=== PATIENT | male | born 1935 | race Caucasian/White ===

== ENCOUNTER 2021-04-26 20:46 | Emergency (ER) | payer OTHER ==
[~2021-04-26] VITALS: Ht 177.8 cm; Wt 59.1 kg
[2021-04-26 23:08] VITALS: BP 178/83; PULSE 94; TEMP 98.1
== END 2021-04-26 23:08 | disposition home or self-care (01) ==
LOC: COL.ER 20:46
DX: N99.89 Other postprocedural complications and disorders of genitourinary system (principal); R33.9 Retention of urine, unspecified; J44.9 Chronic obstructive pulmonary disease, unspecified; Z87.891 Personal history of nicotine dependence; Z98.890 Other specified postprocedural states
CPT/HCPCS: 31860; A4314

== ENCOUNTER 2021-12-04 14:43 | Emergency (ER) | payer MEDICARE, MEDICAID ==
[~2021-12-04] VITALS: Ht 177.8 cm; Wt 55.9 kg
[~2021-12-04 14:43] MED LIST: 00186-0370-20 IH; ASPIRIN 32325 MG/TAB PO; CALCIUM 600MG+D1 TAB PO; COZAAR 25MG25 MG/TAB PO; ENSURE 237 ML237 ML PO; FLOMAX 0.40.4 MG/CAP PO; MUCUS RELIEF400 M1 PO; NORCO 325 MG-51 TAB PO; PROAIR HFA0.09 MG/AC IH; SINGULAIR 110 MG/TAB PO; SODIUM BICARBO650 MG PO; SPIRIVA RE2.5 MCG/Ac IH; THEO-24400 MG PO; ZOCOR 40MG40 MG PO
[2021-12-04 15:09] VITALS: TEMP 97.8
[2021-12-04 15:51] LABS: BASO % 0.8 % (0.0-2.0); EOS # 0.1 K/mm3 (0.0-0.7); EOS % 1.8 % (0.0-4.0); GRAN # 2.4 K/mm3 (1.4-6.5); HEMATOCRIT 37.1 % (42.0-52.0); HEMOGLOBIN 12.4 g/dl (13.5-18.0); LYMPH % 26.1 % (20.0-51.0); MEAN CELL VOLUME 91 fl (80.0-100.0); MEAN CORPUSCULAR HEMOGLOBIN 31 pg (27-31); MEAN CORPUSCULAR HGB CONC 33 g/dl (33.0-37.0); MEAN PLATELET VOLUME 9.6 fl (7.4-10.4); MONO # 0.4 K/mm3 (0.1-0.6); PLATELET COUNT 180 K/mm3 (130-400); RED BLOOD COUNT 4.06 M/mm3 (4.20-5.60); REDCELL DISTRIBUTION WIDTH-CV 14.1 % (11.5-14.5)
[2021-12-04 16:05] LABS: ALBUMIN 3.5 gm/dL (3.4-4.8); BILIRUBIN,TOTAL 0.6 mg/dL (0.2-1.2); CALCIUM 9.2 mg/dL (8.4-10.2); CREATININE, serum 0.85 mg/dL (0.72-1.25); POTASSIUM 3.7 mmol/L (3.5-4.5); TOTAL PROTEIN 6.3 gm/dL (6.2-8.1)
[2021-12-04 16:11] LABS: TROPONIN-I 0.018 ng/mL (0.00-0.033)
[2021-12-04] MEDS ORDERED: CARDIZEM CD 18180 MG PO (17:13)
[2021-12-04 17:56] VITALS: BP 172/88; PULSE 92
[2021-12-13] MEDS ORDERED: CENA K20 MEQ/15 (18:33)
[2021-12-13] MEDS ORDERED: ENSURE 237 ML237 ML PO (19:32)
[2021-12-13] MEDS ORDERED: MILK OF MA400 MG/52 PO (19:34)
[2021-12-13] MEDS ORDERED: CENA K20 MEQ/15 PO (19:35)
[2021-12-13] MEDS ORDERED: CARDIZEM CD 18180 MG PO (19:37)
== END 2021-12-04 18:00 | disposition home or self-care (01) ==
LOC: COL.ER 14:43
PROVIDERS: Physician Assistant
DX: I47.1 Supraventricular tachycardia (principal); Z87.891 Personal history of nicotine dependence

== ENCOUNTER → 2022-03-20 | Outpatient (CLI) | payer OTHER ==
[~2022-03-20] MED LIST changes: +AMOXICILLIN 8751 TAB PO; +ASPIRIN E.C. 8181 MG PO; +BETAPACE 80MG80 MG PO; +CARDIZEM CD 12120 MG PO; +CARDIZEM CD 18180 MG PO; +CEFTIN500 MG PO; +CENA K20 MEQ/15; +CENA K20 MEQ/15 PO; +DIFLUCAN 100MG100 MG PO; +DOXYCYCLINE HY100 MG PO; +ELIQUIS 2.5 PO; +MILK OF MA400 MG/52 PO; +MONODOX100 PO; +NEURONTIN100 MG/CAP PO; +PREDNISONE10 MG; +PREDNISONE10 MG PO; +PREDNISONE20 MG PO; +PROTONIX 40MG T40 MG PO; +ULTRAM 50MG TAB50 MG PO
== END ==
LOC: COL.RAD 13:27
DX: C34.12 Malignant neoplasm of upper lobe, left bronchus or lung (principal); J90 Pleural effusion, not elsewhere classified; J43.9 Emphysema, unspecified; K80.20 Calculus of gallbladder without cholecystitis without obstruction
CPT/HCPCS: Q9967

== ENCOUNTER 2022-07-07 13:40 | Emergency (ER) | payer OTHER, MEDICARE, MEDICAID ==
[~2022-07-07] VITALS: Ht 177.8 cm; Wt 54.5 kg
[~2022-07-07 13:40] MED LIST changes: -AMOXICILLIN 8751 TAB PO; -ASPIRIN E.C. 8181 MG PO; -BETAPACE 80MG80 MG PO; -CARDIZEM CD 12120 MG PO; -CEFTIN500 MG PO; -DIFLUCAN 100MG100 MG PO; -DOXYCYCLINE HY100 MG PO; -ELIQUIS 2.5 PO; -MONODOX100 PO; -NEURONTIN100 MG/CAP PO; -PREDNISONE10 MG; -PREDNISONE10 MG PO; -PREDNISONE20 MG PO; -PROTONIX 40MG T40 MG PO; -ULTRAM 50MG TAB50 MG PO
[2022-07-07 13:45] VITALS: TEMP 98
[2022-07-07] MEDS ORDERED: PREDNISONE10 MG (14:02)
[2022-07-07 14:12] LABS: HEMOGLOBIN 12.3 g/dl (13.5-18.0); MEAN CELL VOLUME 88 fl (80.0-100.0); MEAN CORPUSCULAR HEMOGLOBIN 29 pg (27-31); MEAN CORPUSCULAR HGB CONC 34 g/dl (33.0-37.0); PLATELET COUNT 245 K/mm3 (130-400); RED BLOOD COUNT 4.18 M/mm3 (4.20-5.60); REDCELL DISTRIBUTION WIDTH-CV 13.9 % (11.5-14.5)
[2022-07-07 14:15] LABS: HEMATOCRIT 36.6 % (42.0-52.0)
[2022-07-07 14:29] LABS: ALBUMIN 3.4 gm/dL (3.4-4.8); BILIRUBIN,TOTAL 0.3 mg/dL (0.2-1.2); CALCIUM 9.1 mg/dL (8.4-10.2); CREATININE, serum 0.83 mg/dL (0.72-1.25); POTASSIUM 4.3 mmol/L (3.5-4.5); TOTAL PROTEIN 6.7 gm/dL (6.2-8.1)
[2022-07-07 14:35] LABS: TROPONIN-I 0.016 ng/mL (0.00-0.033)
[2022-07-07 14:51] LABS: BAND 1 % (0-10); LYMPHOCYTE 4 % (20.0-51.0); NEUTROPHILS 95 % (42.0-75.2); PLATELET ESTIMATE NORMAL (NORMAL)
[2022-07-07] MEDS ORDERED: AMOXICILLIN 8751 TAB PO (15:10)
[2022-07-07 16:35] VITALS: BP 148/70; PULSE 76
== END 2022-07-07 16:40 | disposition home or self-care (01) ==
LOC: COL.ER 13:40
PROVIDERS: Personal Emergency Response Attendant
DX: J44.0 Chronic obstructive pulmonary disease with (acute) lower respiratory infection (principal); J18.9 Pneumonia, unspecified organism; J44.1 Chronic obstructive pulmonary disease with (acute) exacerbation; C34.90 Malignant neoplasm of unspecified part of unspecified bronchus or lung; Z88.1 Allergy status to other antibiotic agents
CPT/HCPCS: J0456; J0696; J2930; J7050

== ENCOUNTER 2022-08-13 10:31 | Inpatient (IN) | payer OTHER ==
[~2022-08-13] VITALS: Ht 177.8 cm; Wt 59.0 kg
[~2022-08-13 10:31] MED LIST changes: +AMOXICILLIN 8751 TAB PO; +CARDIZEM CD 12120 MG PO; +ELIQUIS 2.5 PO; +PREDNISONE10 MG
[2022-08-13 10:57] LABS: BASO % 0.5 % (0.0-2.0); EOS # 0.1 K/mm3 (0.0-0.7); GRAN # 4.1 K/mm3 (1.4-6.5); GRAN % 74.4 % (42.2-75.2); HEMATOCRIT 38.6 % (42.0-52.0); HEMOGLOBIN 12.4 g/dl (13.5-18.0); LYMPH # 0.8 K/mm3 (1.2-3.4); LYMPH % 14.7 % (20.0-51.0); MEAN CELL VOLUME 90 fl (80.0-100.0); MEAN CORPUSCULAR HEMOGLOBIN 29 pg (27-31); MEAN CORPUSCULAR HGB CONC 32 g/dl (33.0-37.0); MEAN PLATELET VOLUME 9.1 fl (7.4-10.4); MONO # 0.4 K/mm3 (0.1-0.6); PLATELET COUNT 226 K/mm3 (130-400); RED BLOOD COUNT 4.28 M/mm3 (4.20-5.60); REDCELL DISTRIBUTION WIDTH-CV 14.6 % (11.5-14.5)
[2022-08-13 11:06] LABS: ALANINE AMINOTRANSFERASE 12 U/L (0-55); ALBUMIN 3.3 gm/dL (3.4-4.8); ALKALINE PHOSPHATASE 49 U/L (40-150); ANION GAP 9 mmol/L (7-16); AST,SGOT 16 U/L (5-34); BILIRUBIN,TOTAL 0.5 mg/dL (0.2-1.2); BLOOD UREA NITROGEN 14 mg/dL (8-26); CARBON DIOXIDE 26 mmol/L (23-31); CHLORIDE 100 mmol/L (98-107); CREATININE, serum 0.88 mg/dL (0.72-1.25); GLUCOSE 110 mg/dL (70-99); SODIUM 135 mmol/L (136-145); TOTAL PROTEIN 6.3 gm/dL (6.2-8.1)
[2022-08-13 11:11] LABS: TROPONIN-I < 0.010 ng/mL (0.00-0.033)
[2022-08-13 13:00] VITALS: BP_SYST 127
[2022-08-13 13:11] VITALS: BP 127/58; PULSE 78; TEMP 97.4
--- NOTE | 2022-08-13 13:11 | NUR ---
Pt to medical floor in room 352, oriented to room & call light system. Shift assessment completed. Pt remains on 3L per NC. Telemetry remains on - SR. Port in R chest noted - not accessed. IV site in R forearm remains patent, no edema or redness. Med rec completed. Call light within reach.
[2022-08-13 15:33] VITALS: BP 163/67; PULSE 77; TEMP 97.2
--- NOTE | 2022-08-13 17:10 | NUR ---
BP 163/67, hospitalist notified. New orders in place.
--- NOTE | 2022-08-13 17:31 | NUR ---
Agree with ALEX Casillas assessment of the patient. No further needs expressed. Call light within reach
[2022-08-13 18:24] VITALS: BP_SYST 163
--- NOTE | 2022-08-13 18:24 | NUR ---
Consent for thoracentesis signed & on the chart.
[2022-08-13 20:06] VITALS: BP_SYST 152
[2022-08-13 20:11] VITALS: BP 152/73; PULSE 79; TEMP 98.6
--- NOTE | 2022-08-13 23:29 | NUR ---
PT. SET OFF BED ALARM, WAS SITTING ON THE SIDE OF THE BED WHEN I WENT INTO THE ROOM, STATED THAT HE NEEDED TO GO TO THE BATHROOM, AND ASKED IF HE NEEDED TO CALL EVERY TIME HE NEEDED TO GO, I LET HIM KNOW THAT YES WE WOULD LIKE HIM TO CALL WHEN HE NEEDS TO USE THE NATHROOM WE WANT TO KEEP HIM SAFE, AND KEEP HIM FROM FALLING WHILE HE IS HERE, PT. DENIES ANY FURTHER NEEDS, WILL CONTINUE TO MONITOR.
[2022-08-14] VITALS (11 sets, daily range): BP systolic 133–161; BP diastolic 61–73; PULSE 92–103; TEMP 97.8–98.3
[2022-08-14 06:48] LABS: BASO % 0.5 % (0.0-2.0); GRAN # 1.7 K/mm3 (1.4-6.5); HEMATOCRIT 41.3 % (42.0-52.0); HEMOGLOBIN 13.7 g/dl (13.5-18.0); LYMPH # 0.3 K/mm3 (1.2-3.4); MEAN CELL VOLUME 86 fl (80.0-100.0); MEAN CORPUSCULAR HEMOGLOBIN 29 pg (27-31); MEAN CORPUSCULAR HGB CONC 33 g/dl (33.0-37.0); MEAN PLATELET VOLUME 9.2 fl (7.4-10.4); PLATELET COUNT 230 K/mm3 (130-400); RED BLOOD COUNT 4.81 M/mm3 (4.20-5.60); REDCELL DISTRIBUTION WIDTH-CV 13.9 % (11.5-14.5)
[2022-08-14 07:14] LABS: ALBUMIN 3.3 gm/dL (3.4-4.8); CALCIUM 9.1 mg/dL (8.4-10.2); CREATININE, serum 0.77 mg/dL (0.72-1.25); MAGNESIUM 1.9 mg/dL (1.6-2.6); PHOSPHOROUS 3.2 mg/dL (2.3-4.7); POTASSIUM 3.9 mmol/L (3.5-4.5)
--- NOTE | 2022-08-14 07:51 | NUR ---
Pt awake and eating breakfast. Morning K+ administered. Shift assessment completed. Pt remains on 3L per NC. Telemetry remains on - ST. INT in R forearm patent, no edema or redness. Pt verbalizes he is expecting a thoracentesis today. Call light within reach.
--- NOTE | 2022-08-14 09:35 | NUR ---
SW met with the patient to discuss discharge plan. The patient lives alone in [place]. He reports independence with ADLs and has a walker available, if needed. He provides that he has home oxygen that he uses at night and occasionally during the day. His oxygen is supplied through the [facility]. The patient's PCP is Dr. Naik at the [facility] and [facility] The patient does not have a DPOA-HC and he was not interested in completing one at this time. The patient states that he is and does not have any children. He states that his parents are and he has one sibling: Raven Jimenez (ph#[phone]). She lives in [place] and he states that she is involved in his care. The patient plans to return home upon discharge and states that his sister will transport him home. *Discharge plan: home*
--- NOTE | 2022-08-14 14:42 | NUR ---
Initial visit: Territory Development Manager stopped by room on rounds. Pt was resting and content with sister in the room with him. Pt has no needs right now. Territory Development Manager will follow up as needed.
--- NOTE | 2022-08-14 21:07 | NUR ---
PT. WAS ASKING FOR HIS TRAMADOL, STATED THAT HE WAS SUPPOSED TO GET IT AROUND 5PM, I LET HIM KNOW THAT THEY HAD IT ORDERED FOR HIM TO GET AT BEDTIME, WHICH IS WHY HE HADN'T RECEIVED IT EARLIER, PT. STATED THAT HE DOESN'T NORMALLY TAKE THIS MANY PILLS AT ONCE WHEN I GAVE HIM HIS OTHER NIGHT TIME MEDS, I LET HIM KNOW THAT THEY COULD MAYBE REARRANGE WHEN THEY HAVE THEM SCHEDULED TOMORROW, PT. STATED HE HOPED HE WAS ABLE TO LEAVE AFTER HIS THORACENTESIS TOMORROW, WILL CONTINUE TO MONITOR.
[2022-08-15] VITALS (7 sets, daily range): BP systolic 133–151; BP diastolic 59–70; PULSE 92–99; TEMP 97.6–98
[2022-08-15 06:46] LABS: GRAN # 4.6 K/mm3 (1.4-6.5); GRAN % 85.4 % (42.2-75.2); HEMOGLOBIN 12.2 g/dl (13.5-18.0); LYMPH # 0.4 K/mm3 (1.2-3.4); MEAN CELL VOLUME 85 fl (80.0-100.0); MEAN CORPUSCULAR HEMOGLOBIN 28 pg (27-31); MEAN CORPUSCULAR HGB CONC 34 g/dl (33.0-37.0); MEAN PLATELET VOLUME 9.1 fl (7.4-10.4); MONO # 0.4 K/mm3 (0.1-0.6); MONO % 7.2 % (1.7-9.3); PLATELET COUNT 211 K/mm3 (130-400); RED BLOOD COUNT 4.29 M/mm3 (4.20-5.60)
[2022-08-15 06:54] LABS: ALBUMIN 3.1 gm/dL (3.4-4.8); CALCIUM 8.9 mg/dL (8.4-10.2); CREATININE, serum 0.81 mg/dL (0.72-1.25); MAGNESIUM 1.9 mg/dL (1.6-2.6); POTASSIUM 4.1 mmol/L (3.5-4.5)
[2022-08-15 07:00] LABS: HEMATOCRIT 36.3 % (42.0-52.0)
--- NOTE | 2022-08-15 07:10 | NUR ---
awake resting in bed, bedside shift report received from ABEBA Mccollum
--- NOTE | 2022-08-15 08:45 | NUR ---
Dr Crouch in to see patient, will plan to do bedside thoracentesis, ABEBA Templeton in and assisted Dr crouch with thoracentesis,
[2022-08-15 09:00] LABS: INR 1.1 (0.8-3.0); PROTHROMBIN TIME 12.1 SECONDS (9.7-12.8)
--- NOTE | 2022-08-15 09:20 | NUR ---
tolerated thoracentesis well, had breakfast and now resting in bed, occupational therapy was in and worked with patient, full assessment completed, see interventions for furtherinfo
[2022-08-15] MEDS ORDERED: DOXYCYCLINE HY100 MG PO (10:55)
[2022-08-15] MEDS ORDERED: CEFTIN500 MG PO (10:55)
[2022-08-15] MEDS ORDERED: PREDNISONE10 MG PO (10:56)
--- NOTE | 2022-08-15 11:35 | NUR ---
assisted up to bathroom by cardiopulmonary O2 off and she will check O2 sat after returning to be when he is off O2
--- NOTE | 2022-08-15 13:15 | NUR ---
discharge instructions given to patient and his sister, verbalizes understanding
--- NOTE | 2022-08-15 13:25 | NUR ---
discharged per WC
[2022-08-15 16:08] LABS: PLEURAL FLUID RBC 2000 /mm3 (0-0); PLEURAL FLUID WBC 1402 /mm3
[2022-08-15 16:11] LABS: PLEURAL FLUID APPEARANCE HAZY; PLEURAL FLUID COLOR YELLOW
== END 2022-08-15 13:25 | disposition home or self-care (01) | DRG 193 ==
LOC: COL.ER 10:31 → MEDICAL 12:05
PROVIDERS: Nurse Practitioner; ADMIT Internal Medicine
PROC: 0W993ZZ Drainage of Right Pleural Cavity, Percutaneous Approach (ICD-10-PCS; principal; 2022-08-15)
DX: J18.9 Pneumonia, unspecified organism (principal); J96.01 Acute respiratory failure with hypoxia; C34.90 Malignant neoplasm of unspecified part of unspecified bronchus or lung; J90 Pleural effusion, not elsewhere classified; J43.9 Emphysema, unspecified; I10 Essential (primary) hypertension; N40.0 Benign prostatic hyperplasia without lower urinary tract symptoms; E78.5 Hyperlipidemia, unspecified; G47.00 Insomnia, unspecified; Z88.1 Allergy status to other antibiotic agents; Z88.8 Allergy status to other drugs, medicaments and biological substances; Z79.01 Long term (current) use of anticoagulants; Z79.899 Other long term (current) drug therapy; Z87.891 Personal history of nicotine dependence; Z23 Encounter for immunization
CPT/HCPCS: A9270; J0696; J1100; J1650; Q9967